=== PATIENT | male | born 1960 | race American Indian/Alaskan Native ===

== ENCOUNTER 2019-09-08 21:52 | Emergency (ER) | payer OTHER ==
--- NOTE | 2019-09-08 23:37 | XRay Report ---
RIGHT ELBOW 3 VIEWS RIGHT FOREARM 2 VIEWS INDICATION: right elbow pain. COMPARISON: No relevant prior imaging study available. FINDINGS: Right elbow: No fracture, dislocation, or joint effusion. There is mild joint space narrowing at the ulnohumeral articulation. There is minimal soft tissue swelling superficial to the olecranon. No fore ign bodies. Right forearm: No acute skeletal abnormality. No significant soft tissue swelling. IMPRESSION: 1. No acute findings. Signer Name: Sajan Blanchard MD Signed: 09/08/2019 11:33 PM Workstation Name: [email or web address] [id number] (formerly [id number])
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
[2019-09-09 01:54] VITALS: BP 151/72
== END 2019-09-09 02:00 | disposition home or self-care (01) ==
LOC: ED 21:52
DX: S56.911A Strain of unspecified muscles, fascia and tendons at forearm level, right arm, initial encounter (principal); S53.401A Unspecified sprain of right elbow, initial encounter; V69.49XA Driver of heavy transport vehicle injured in collision with other motor vehicles in traffic accident, initial encounter; Y93.89 Activity, other specified; Y92.410 Unspecified street and highway as the place of occurrence of the external cause; Y99.8 Other external cause status